=== PATIENT | male | born 1955 | race Two or more races ===

== ENCOUNTER 2020-03-19 17:39 | Outpatient (REF) | payer OTHER, SELFPAY ==
[2020-03-19 18:22] LABS: COVID-19 Test Negative (Negative)
== END 2020-03-19 17:40 | disposition home or self-care (01) ==
LOC: HO.LAB 17:39
PROVIDERS: Visit Provider Internal Medicine
DX: Z20.828 Contact with and (suspected) exposure to other viral communicable diseases (principal)
CPT/HCPCS: 87635; C9803